=== PATIENT | female | born 1945 | race African-American/Black ===

== ENCOUNTER → 2016-06-26 | Outpatient (CLI) | payer BC, MEDICARE ==
[2016-01-25 11:00] VITALS: BP 138/72
[~2016-06-26] MED LIST: AMLO1CAP10 PO; AMLO5TAB2 PO; ASPI325T11 PO; ATOR10TA60 PO; CELE200C PO; FERR-26 PO; FERR325T58 PO; HYDR-2666 PO; METO25TA4 PO; OXYC1TAB7 PO; SENN1TAB21 PO; TRAM50TA PO
--- NOTE | 2016-06-26 11:24 | RAD ---
DATE: 06/26/2016. EXAM: DIGITAL SCREEN BILAT W/CAD HISTORY: Routine screening COMPARISON: 06/05/2015 This study was interpreted with the benefit of Computerized Aided Detection (CAD). FINDINGS: 2-D digital mammography was performed bilaterally. Both breasts again show moderate parenchymal heterogeneity and increased density, limiting the sensitivity of mammography. The parenchymal pattern is stable. No dominant mass or malignant appearing microcalcifications are seen. The axillae are unremarkable. IMPRESSION: No mammographic features suspicious for malignancy are identified. BI-RADS CATEGORY: 2 BENIGN FINDING(S) RECOMMENDED FOLLOW-UP: 12M 12 MONTH FOLLOW-UP PQRS compliance statement: Patient information was entered into a reminder system with a target due date for the next mammogram. Mammography is a sensitive method for finding small breast cancers, but it does not detect them all and is not a substitute for careful clinical examination. A negative mammogram does not negate a clinically suspicious finding and should not result in delay in biopsying a clinically suspicious abnormality. "Our facility is accredited by the [employer] Mammography Program."
== END | disposition home or self-care (01) ==
LOC: MAMMO 09:23
PROVIDERS: ATTEND Obstetrics & Gynecology
DX: Z12.31 Encounter for screening mammogram for malignant neoplasm of breast (principal)
CPT/HCPCS: G0202; 77067

== ENCOUNTER 2016-12-06 12:08 | Inpatient (IN) | payer BC, MEDICARE ==
[~2016-12-06] VITALS: Ht 157.5 cm; Wt 73.2 kg
[~2016-12-06 12:08] MED LIST changes: -HYDR-2666 PO; +HYDR-2758 PO
[2016-12-06] MEDS ORDERED: fentaNYL PF VIAL 100 MCG/2 ML VIAL IV ONE (12:45)
[2016-12-06] MEDS ORDERED: LIDO:MAALOX:DONNATAL 1:1:1 15 ML SINGLE DOSE SWSW ONE (12:45)
[2016-12-06] MEDS ORDERED: ONDANSETRON PF 4 MG/2 ML VIAL. IV ONE (12:45)
[2016-12-06] MEDS ORDERED: ASPIRIN ENTERIC COATED 325 MG TABLET.DR. PO ONE (12:45)
--- NOTE | 2016-12-06 13:01 | RAD ---
Indication chest pain. A single view of the chest was obtained and is compared to an examination 09/25/2015. The heart and pulmonary vessels appear normal. The lungs are clear. There are occasional calcified right hilar lymph nodes appearing similar. There has not been a significant change in the appearance of the chest. IMPRESSION: No acute or focal process. No significant change
--- NOTE | 2016-12-06 13:06 | EKG ---
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
--- NOTE | 2016-12-06 13:28 | PHYS DOC ---
Past Medical History Past Medical History: Hypertension, Other Additional Past Medical Histor: HIGH CHOLESTEROL Past Surgical History: Cholecystectomy, Hysterectomy Alcohol Use: None Drug Use: None Adult General Chief Complaint Chief Complaint: OTHER COMPLAINTS HPI HPI Patient is a 71 year old female presenting to the emergency department for evaluation of chest pain that she says started persistently for the past several days but she says that she has been having worsening pain over the past several weeks. She says that it is mostly in the center of her chest feels achy sometimes pressure she also says it hurts to swallow and feels that her foods or not passing very easily. She denies any short of breath diaphoresis nausea or vomiting. She has hypertension high cholesterol but denies any diabetes or family history of heart disease. She has had a negative stress test in the past. She is in no obvious distress with normal vital signs. Review of Systems Review of Systems Constitutional: Denies fever or chills [] Eyes: Denies change in visual acuity, redness, or eye pain [] HENT: Denies nasal congestion or sore throat [] Respiratory: Denies cough or shortness of breath [] Cardiovascular: + CP GI: Denies abdominal pain, nausea, vomiting, bloody stools or diarrhea [] : Denies dysuria or hematuria [] Musculoskeletal: Denies back pain or joint pain [] Integument: Denies rash or skin lesions [] Neurologic: Denies headache, focal weakness or sensory changes [] Current Medications Current Medications Current Medications Medications (Trade) Dose Ordered Sig/Taj Start Time Stop Time Status Last Admin Dose Admin Aspirin (Ecotrin) 325 mg 1X ONCE 12/06/16 12:45 12/06/16 12:46 DC 12/06/16 13:02 325 MG Fentanyl Citrate (Fentanyl 2ml Vial) 50 mcg 1X ONCE 12/06/16 12:45 12/06/16 12:46 DC 12/06/16 13:47 50 MCG Multi-Ingredient Mouthwash/Gargle (Gi Cocktail Single Dose) 15 ml 1X ONCE 12/06/16 12:45 12/06/16 12:46 DC 12/06/16 13:03 15 ML Ondansetron HCl (Zofran) 4 mg 1X ONCE 12/06/16 12:45 12/06/16 12:46 DC 12/06/16 13:43 4 MG Allergies Allergies Allergies Coded Allergies Type Severity Reaction Last Updated Verified No Known Drug Allergies 01/23/16 No Physical Exam Physical Exam Constitutional: Well developed, well nourished, no acute distress, non-toxic appearance. [] HENT: Normocephalic, atraumatic, bilateral external ears normal, oropharynx moist, no oral exudates, nose normal. [] Eyes: PERRLA, EOMI, conjunctiva normal, no discharge. [] Neck: Normal range of motion, no tenderness, supple, no stridor. [] Cardiovascular:Heart rate regular rhythm, no murmur [] Lungs & Thorax: Bilateral breath sounds clear to auscultation [] Abdomen: Bowel sounds normal, soft, no tenderness, no masses, no pulsatile masses. [] Skin: Warm, dry, no erythema, no rash. [] Back: No tenderness, no CVA tenderness. [] Extremities: No tenderness, no cyanosis, no clubbing, ROM intact, no edema. [] Neurologic: Alert and oriented X 3, normal motor function, normal sensory function, no focal deficits noted. [] Current Patient Data Vital Signs Vital Signs Date Time Temp Pulse Resp B/P (MAP) Pulse Ox O2 Delivery O2 Flow Rate FiO2 12/06/16 13:49 62 18 164/73 (103) 98 Room Air 12/06/16 12:23 98.5 98.5 Lab Values Laboratory Tests Test 12/06/16 13:35 White Blood Count 5.5 x10^3/uL (4.0-11.0) Red Blood Count 5.47 x10^6/uL (3.50-5.40) H Hemoglobin 14.9 g/dL (12.0-15.5) Hematocrit 45.4 % (36.0-47.0) Mean Corpuscular Volume 83 fL (79-100) Mean Corpuscular Hemoglobin 27 pg (25-35) Mean Corpuscular Hemoglobin Concent 33 g/dL (31-37) Red Cell Distribution Width 15.4 % (11.5-14.5) H Platelet Count 194 x10^3/uL (140-400) Neutrophils (%) (Auto) 56 % (31-73) Lymphocytes (%) (Auto) 33 % (24-48) Monocytes (%) (Auto) 6 % (0-9) Eosinophils (%) (Auto) 4 % (0-3) H Basophils (%) (Auto) 1 % (0-3) Neutrophils # (Auto) 3.1 x10^3uL (1.8-7.7) Lymphocytes # (Auto) 1.8 x10^3/uL (1.0-4.8) Monocytes # (Auto) 0.3 x10^3/uL (0.0-1.1) Eosinophils # (Auto) 0.2 x10^3/uL (0.0-0.7) Basophils # (Auto) 0.0 x10^3/uL (0.0-0.2) Prothrombin Time 12.8 SEC (11.7-14.0) Prothrombin Time INR 1.0 (0.8-1.1) PTT 25 SEC (24-38) Sodium Level 146 mmol/L (136-145) H Potassium Level 3.6 mmol/L (3.5-5.1) Chloride Level 105 mmol/L (98-107) Carbon Dioxide Level 27 mmol/L (21-32) Anion Gap 14 (6-14) Blood Urea Nitrogen 23 mg/dL (7-20) H Creatinine 1.6 mg/dL (0.6-1.0) H Estimated GFR (Cockcroft-Gault) 38.2 BUN/Creatinine Ratio 14 (6-20) Glucose Level 91 mg/dL (70-99) Calcium Level 9.5 mg/dL (8.5-10.1) Magnesium Level 2.0 mg/dL (1.8-2.4) Total Bilirubin 0.5 mg/dL (0.2-1.0) Aspartate Amino Transferase (AST) 28 U/L (15-37) Alanine Aminotransferase (ALT) 33 U/L (14-59) Alkaline Phosphatase 100 U/L (46-116) Creatine Kinase 178 U/L (26-192) Total Protein 9.5 g/dL (6.4-8.2) H Albumin 5.2 g/dL (3.4-5.0) H Albumin/Globulin Ratio 1.2 (1.0-1.7) Lipase 128 U/L (73-393) Laboratory Tests 12/06/16 13:35 Laboratory Tests 12/06/16 13:35 EKG EKG Sinus rhythm at 79 bpm with normal axis no obvious ST elevation or depression but there is inverted T waves in leads V2 V3 and V4. Radiology/Procedures Radiology/Procedures Indication chest pain. A single view of the chest was obtained and is compared to an examination 09/25/2015. The heart and pulmonary vessels appear normal. The lungs are clear. There are occasional calcified right hilar lymph nodes appearing similar. There has not been a significant change in the appearance of the chest. IMPRESSION: No acute or focal process. No significant change DICTATED and SIGNED BY: ALEKSANDRA DONNELLY MD DATE: 12/06/16 1259 Course & Med Decision Making Course & Med Decision Making Patient with chest pain in the setting of an abnormal EKG. Most likely this is esophageal spasm and likely narrowing but given she has an abnormal EKG with chest pain and she has multiple risk factors she will be admitted for further observation and treatment. Dragon Disclaimer Dragon Disclaimer This electronic medical record was generated, in whole or in part, using a voice recognition dictation system. Departure Departure Impression: Primary Impression: Chest pain Additional Impression: Renal insufficiency Disposition: ADMITTED INPATIENT Admitting Physician: Leonard Rose Condition: STABLE Referrals: JAMIL BRENNER Jr, MD (PCP) Problem Qualifiers Primary Impression: Chest pain Chest pain type: unspecified Qualified Codes: R07.9 - Chest pain, unspecified MANDA BISHOP DO Dec 06, 2016 13:28
[2016-12-06 13:46] LABS: BASO % 1 % (0-3); EOS % 4 % (0-3); HEMATOCRIT 45.4 % (36.0-47.0); HEMOGLOBIN 14.9 g/dL (12.0-15.5); LYMPH # 1.8 x10^3/uL (1.0-4.8); LYMPH % 33 % (24-48); MEAN CORPUSCULAR HEMOGLOBIN 27 pg (25-35); MEAN CORPUSCULAR HGB CONC 33 g/dL (31-37); MEAN CORPUSCULAR VOLUME 83 fL (79-100); MONO % 6 % (0-9); NEUT % 56 % (31-73); PLATELET COUNT 194 x10^3/uL (140-400); RED BLOOD COUNT 5.47 x10^6/uL (3.50-5.40); RED CELL DISTRIBUTION WIDTH 15.4 % (11.5-14.5); WHITE BLOOD COUNT 5.5 x10^3/uL (4.0-11.0)
[2016-12-06 13:55] LABS: PROTHROMBIN TIME PATIENT 12.8 SEC (11.7-14.0)
[2016-12-06 14:00] LABS: CALCIUM 9.5 mg/dL (8.5-10.1); CREATININE 1.6 mg/dL (0.6-1.0); GFR 38.2; POTASSIUM 3.6 mmol/L (3.5-5.1)
[2016-12-06 14:07] LABS: ALBUMIN 5.2 g/dL (3.4-5.0); ALBUMIN/GLOBULIN RATIO 1.2 (1.0-1.7); TOTAL BILIRUBIN 0.5 mg/dL (0.2-1.0); TOTAL PROTEIN 9.5 g/dL (6.4-8.2)
[2016-12-06] MEDS ORDERED: ONDANSETRON PF 4 MG/2 ML VIAL. IV PRN ×2 (14:45→16:45)
--- NOTE | 2016-12-06 14:45 | ACF ---
Admission Forms Criteria CARDIOLOGY GRG Clinical Indications for Admission to Inpatient Care ( Place 'X' for any and all applicable criteria): Hospital admission is needed for appropriate care of the patient because of ANY ONE of the following (1): [ ] I. Hemodynamic instability as indicated by ALL of the following (1)(2)(3) (4)(5) [ ]a) Vital signs or other findings not as expected for chronic patient condition or baseline [ ]b) Instability indicated by ANY ONE of the following: [ ]i) Hypotension [ ]ii) Symptomatic Tachycardia unresponsive to treatment ( e.g., analgesia, fluids, sedation as indicated) [ ]iii) Inadequate perfusion indicated by ANY ONE of the following: [ ] 1) Lactic acidosis (> 2 mmol/L) [ ] 2) New abnormal capillary refill (> 3 seconds) [ ] 3) Reduced urine output [ ] 4) New altered mental status [ ]iv) Orthostatic vital sign changes unresponsive to treatment (e.g., fluids) [ ]v) IV inotropic or vasopressor medication required to maintain adequate blood pressure or perfusion [ ] II. Severe heart failure as indicated by ANY ONE of the following(17)(18) [ ]a) Respiratory distress [ ]b) Hypotension [ ]c) Anasarca (refractory to outpatient therapy) [ ]d) Cardiac arrhythmias of immediate concern [ ]e) Myocardial ischemia [ ] III. Cardiac arrhythmias or findings of immediate concern indicated by ANY ONE of the following (19)(20): [ ] a) Heart rhythms that are inherently dangerous or unstable indicated by ANY ONE of the following (21)(22)(23): [ ] i) Resuscitated ventricular fibrillation or cardiac arrest [ ] ii) Ventricular escape rhythm [ ] iii) Sustained ventricular tachycardia (30 seconds or more of ventricular rhythm at greater than 100 beats per minute) [ ] iv) Nonsustained ventricular tachycardia and ANY ONE of the following: [ ] 1) Suspected cardiac ischemia as cause or consequence of ventricular tachycardia [ ] 2) In setting of acute myocarditis [ ] b) Unstable cardiac conduction defects indicated by ANY ONE of the following(23)(24)(25) [ ] i) Type II second-degree atrioventricular block [ ]ii) Third-degree atrioventricular block [ ]iii) New-onset left bundle branch block with suspected myocardial ischemia [ ]c) Any heart rhythm and ANY ONE of the following (21)(22)(26)(27) (28) [ ] i) Continuous long-term ECG monitoring needed (e.g., initiation of drug requiring monitoring for more than 24 hours) [ ] ii) Patient has automatic implanted cardioverter defibrillator that is repeatedly firing, malfunctioning, or in need of immediate adjustment of settings beyond the scope of ambulatory or observation care [ ]d) Heart rhythms of concern due to ANY ONE of the following: [ ] i) Hypotension [ ] ii) Respiratory distress [ ] iii) Association with other significant symptoms (e.g., bradycardia with syncope or ongoing dizziness, supraventricular tachycardia with chest pain (14)(15)(17) [ ] IV. Monitoring for cardiac contusion beyond the scope of observation care needed [A](30)(31)(32) [ ] V. Surgical or device complication (e.g., valve replacement complication , pacemaker dysfunction) (35)(41)(44)(45)(46) [ ] . Inpatient palliative care needed. [B](49) Also use Inpatient Palliative Care Criteria [ ] VII. Nonbacterial thrombotic (marantic) endocarditis (36)(43)(47)(48) [X ] VIII. Cardiology condition, symptom, or finding for which emergency and observation care has failed or are not considered appropriate. [ ] IX. Acute valvular disease requiring inpatient as indicated by ANY ONE of the following (41) [ ]a) Acute valvular regurgitation (42) [ ]b) Noninfectious valvulitis (43) [ ]c) Obstructive valve thrombosis [ ]d) Paravalvular leak [ ]e) Other significant valvular disorder remaining after emergency or observation level of care (as appropriate) [ ]X. Pericardial disease requiring inpatient treatment as indicated by ANY ONE of the following (33)(34)(35)(36)(37) [ ]a) Suspected tamponade (38)(39)(40) [ ]b) Hemopericardium [ ]c) Other significant pericardial disorder remaining after emergency or observation level of care (as appropriate) [ ] XI. Cardiac ischemia beyond scope of emergency and observation care. [ ] XII. Hypertension requiring inpatient treatment as indicated by ANY ONE of the following (6)(7)(8) [ ]a) SBP greater than 220 mm Hg or DBP greater than 120 mmHg despite treatment [ ]b) SBP greater than 140 mm Hg or DBP greater than 100 mm Hg with evidence of acute end organ damage as indicated by ANY ONE of the following [ ] i) Encephalopathy [ ] ii) Acute renal failure as indicated by new onset of ANY ONE of the following (9)(10)(11)(12)(13) [ ]1) 3-fold rise in serum creatinine from baseline [ ]2) Serum creatinine greater than 4 mg/dL ( 354 micromoles/L) with acute rise greater than 0.5 mg/dL (44.2 micromoles/L) [ ]3) Reduction of more than 75% in estimated glomerular filtration rate from baseline [ ]4) Estimated glomerular filtration rate less than 35 mL/min/1.73m2 (0.59 mL/sec/1.73m2) in child up to 18 years of age [ ]5) Cessation of urine output indicated by ALL of the following [ ]A. Adequate volume status [ ]B. Inadequate urine output as indicated by ANY ONE of the following [ ]a. Urine output less than 0.3 mL/kg/hr for 24 hours [ ]b. Anuria (urine output less than 0.1 mL/kg/hr) for 12 hours [ ] iii) Aortic dissection [ ] iv) Myocardial Ischemia [ ] v) Left ventricular heart failure [ ]vi) Retinal Hemorrhage [ ]vii) Other significant finding [ ]c) Hypertension in child requiring inpatient treatment as indicated by ALL of the following(14)(15)(16) [ ] i) Outpatient treatment not effective, not available, or not appropriate [ ]ii) SBP or DBP greater than 95th percentile for age [ ]iii) Evidence of acute end organ damage as indicated by ANY ONE of the following [ ]1) Altered mental status [ ]2) Acute renal failure as indicated by new onset of ANY ONE of the following(9)(10)(11)(12)(13) [ ]A. 3-fold rise in serum creatinine from baseline [ ]B. Serum creatinine greater than 4 mg/dL (354 micromoles/L) with acute rise greater than 0.5 mg/dL (44.2 micromoles/L) [ ]C. Reduction of more than 75% in estimated glomerular filtration rate from baseline [ ]D. Estimated glomerular filtration rate less than 35 mL/min/1.73m2 (0.59 mL/sec/1.73m2) in child up to 18 years of age [ ]E. Cessation of urine output indicated by ALL of the following [ ]a. Adequate volume status [ ]b. Inadequate urine output as indicated by ANY ONE of the following [ ]i) Urine output less than 0.3 mL/kg/hr for 24 hours [ ]ii) Anuria ( urine output less than 0.1 mL/kg/hr) for 12 hours [ ]3) Severe headache [ ]4) Visual disturbance [ ]5) Retinal hemorrhage [ ]6) Other significant finding [ ]XIII. Complications of transplanted heart indicated by ANY ONE of the following(61): [ ]a) Acute graft rejection requiring inpatient management (eg, intravenous immunosuppression)(62)(63) [ ]b) Acute graft heart failure indicated by ANY ONE of the following(64): [ ]i) Hemodynamic instability [ ]ii) Cardiac arrhythmias of immediate concern [ ]iii) Pulmonary edema that is very severe (eg, mechanical ventilation needed, imminent or likely, need for 100% oxygen to keep oxygen saturation above 90%) [ ]iv) Pulmonary edema that is persistent as indicated by ALL of the following: [ ]1) New need for oxygen therapy to keep oxygen saturation above 90% (or increased FiO2 need from baseline) [ ]2) Has not improved sufficiently with emergency department or observation care IV diuretics or other heart failure treatments[E] [ ]v) Altered mental status that is severe or persistent [ ]vi) Increased creatinine (new on laboratory test) with reduction of more than 50% in estimated glomerular filtration rate from baseline [ ]vii) Progressively (ongoing) rising creatinine (known from past laboratory test) with reduction of more than 25% in estimated glomerular filtration rate from baseline [ ]viii) Acute renal failure [ ]ix) Acute peripheral ischemia (eg, examination shows pulseless, cool, mottled, or cyanotic extremity) [ ]x) Pulmonary artery catheter monitoring needed [ ]xi) Other sign or symptom of heart failure requiring inpatient treatment (ie, too severe or not responsive to outpatient and observation care treatment) [ ]c) Infection requiring inpatient management (eg, Hemodynamic instability, need for intravenous antimicrobial treatment)(66)(67)(68)(69)(70) [ ]d) Cardiac allograft vasculopathy requiring inpatient management ( eg evidence of cardiac ischemia)(71) [ ]e) Other complication of transplanted heart (eg, stroke, severe pulmonary hypertension, severe valvular dysfunction) requiring inpatient management(72) The original [facility] content created by [facility] has been revised. The portions of the content which have been revised are identified through the use of italic text or in bold, and [facility] has neither reviewed nor approved the modified material. All other unmodified content is copyright [facility]. Please see references footnoted in the original [facility] edition 2016 Admission Criteria Met?: Yes LIU SALCEDO Dec 06, 2016 14:45
[2016-12-06 16:38] VITALS: BP 148/72
--- NOTE | 2016-12-06 16:41 | PDOC1 ---
History and Physical Date of Admission Date of Admission 12/06/2016 Identification/Chief Complaint Chief Complaint Pain, chest Problems: History of Present Illness History of Present Illness A 71-year-old -[place] female patient with prior history of hypertension hyperlipidemia presented to the ER with complaints of chest pain described it as coming and going, located in the center of the chest and resolves by itself, no aggravating or relieving factors however for last 2 days pain has been getting worse increasing frequency and sometimes radiating to the jaw and shoulder region. She denies any prior history of a heart headaches or significant coronary artery disease however her EKG showed some lateral lead changes. Past Medical History Cardiovascular: HTN, Hyperlipidemia Past Surgical History Past Surgical History: Cholecystectomy, Total knee replacement Family History Family History No significant coronary artery disease in the family Social History Smoke: No ALCOHOL: none Drugs: None Current Problem List Problem List Problems Medical Problems: (1) Chest pain Status: Acute (2) Renal insufficiency Status: Acute Current Medications Current Medications Current Medications Medications (Trade) Dose Ordered Sig/Taj Start Time Stop Time Status Last Admin Dose Admin Aspirin (Ecotrin) 325 mg 1X ONCE 12/06/16 12:45 12/06/16 12:46 DC 12/06/16 13:02 325 MG Fentanyl Citrate (Fentanyl 2ml Vial) 50 mcg 1X ONCE 12/06/16 12:45 12/06/16 12:46 DC 12/06/16 13:47 50 MCG Multi-Ingredient Mouthwash/Gargle (Gi Cocktail Single Dose) 15 ml 1X ONCE 12/06/16 12:45 12/06/16 12:46 DC 12/06/16 13:03 15 ML Ondansetron HCl (Zofran) 4 mg PRN Q8HRS PRN 12/06/16 14:45 12/07/16 14:44 Allergies Allergies Allergies Coded Allergies Type Severity Reaction Last Updated Verified No Known Drug Allergies 01/23/16 No ROS Review of System CONSTITUTIONAL: No fever or chills EYES: No recent changes SKIN: No rash or itching CARDIOVASCULAR: chest pain, no syncope, palpitations, or edema RESPIRATORY: No SOB or cough GASTROINTESTINAL: No nausea, vomiting or abdominal pain NEUROLOGICAL: No headaches or weakness ENDOCRINE: No cold or heat intolerance GENITOURINARY: No urgency or frequency of urination MUSCULOSKELETAL: No back pain or joint pain LYMPHATICS: No enlarged lymph nodes PSYCHIATRIC: No anxiety or depression Physical Exam Physical Exam GEN.: No apparent distress. Alert and oriented. HEENT: Head is normocephalic, atraumatic NECK: Supple. no jvd LUNGS: Clear to auscultation. Normal flow HEART: RRR, S1, S2 present. Peripheral pulses intact ABDOMEN: Soft, nontender. Positive bowel sounds. EXTREMITIES: Without any cyanosis. NEUROLOGIC: Normal speech, normal tone PSYCHIATRIC: Normal affect, normal mood. SKIN: No ulcerations Vitals Vitals Vital Signs Date Time Temp Pulse Resp B/P (MAP) Pulse Ox O2 Delivery O2 Flow Rate FiO2 12/06/16 14:42 76 14 134/61 (85) 98 Room Air 12/06/16 12:23 98.5 98.5 Labs Labs Laboratory Tests Test 12/06/16 13:35 White Blood Count 5.5 x10^3/uL (4.0-11.0) Red Blood Count 5.47 x10^6/uL (3.50-5.40) Hemoglobin 14.9 g/dL (12.0-15.5) Hematocrit 45.4 % (36.0-47.0) Mean Corpuscular Volume 83 fL (79-100) Mean Corpuscular Hemoglobin 27 pg (25-35) Mean Corpuscular Hemoglobin Concent 33 g/dL (31-37) Red Cell Distribution Width 15.4 % (11.5-14.5) Platelet Count 194 x10^3/uL (140-400) Neutrophils (%) (Auto) 56 % (31-73) Lymphocytes (%) (Auto) 33 % (24-48) Monocytes (%) (Auto) 6 % (0-9) Eosinophils (%) (Auto) 4 % (0-3) Basophils (%) (Auto) 1 % (0-3) Neutrophils # (Auto) 3.1 x10^3uL (1.8-7.7) Lymphocytes # (Auto) 1.8 x10^3/uL (1.0-4.8) Monocytes # (Auto) 0.3 x10^3/uL (0.0-1.1) Eosinophils # (Auto) 0.2 x10^3/uL (0.0-0.7) Basophils # (Auto) 0.0 x10^3/uL (0.0-0.2) Prothrombin Time 12.8 SEC (11.7-14.0) Prothromb Time International Ratio 1.0 (0.8-1.1) Activated Partial Thromboplast Time 25 SEC (24-38) Sodium Level 146 mmol/L (136-145) Potassium Level 3.6 mmol/L (3.5-5.1) Chloride Level 105 mmol/L (98-107) Carbon Dioxide Level 27 mmol/L (21-32) Anion Gap 14 (6-14) Blood Urea Nitrogen 23 mg/dL (7-20) Creatinine 1.6 mg/dL (0.6-1.0) Estimated GFR (Cockcroft-Gault) 38.2 BUN/Creatinine Ratio 14 (6-20) Glucose Level 91 mg/dL (70-99) Calcium Level 9.5 mg/dL (8.5-10.1) Magnesium Level 2.0 mg/dL (1.8-2.4) Total Bilirubin 0.5 mg/dL (0.2-1.0) Aspartate Amino Transf (AST/SGOT) 28 U/L (15-37) Alanine Aminotransferase (ALT/SGPT) 33 U/L (14-59) Alkaline Phosphatase 100 U/L (46-116) Creatine Kinase 178 U/L (26-192) Troponin I Quantitative < 0.017 ng/mL (0.000-0.055) BB-Dnp-C-Type Natriuretic Peptide 303 pg/mL (0-124) Total Protein 9.5 g/dL (6.4-8.2) Albumin 5.2 g/dL (3.4-5.0) Albumin/Globulin Ratio 1.2 (1.0-1.7) Lipase 128 U/L (73-393) Laboratory Tests Test 12/06/16 13:35 White Blood Count 5.5 x10^3/uL (4.0-11.0) Red Blood Count 5.47 x10^6/uL (3.50-5.40) Hemoglobin 14.9 g/dL (12.0-15.5) Hematocrit 45.4 % (36.0-47.0) Mean Corpuscular Volume 83 fL (79-100) Mean Corpuscular Hemoglobin 27 pg (25-35) Mean Corpuscular Hemoglobin Concent 33 g/dL (31-37) Red Cell Distribution Width 15.4 % (11.5-14.5) Platelet Count 194 x10^3/uL (140-400) Neutrophils (%) (Auto) 56 % (31-73) Lymphocytes (%) (Auto) 33 % (24-48) Monocytes (%) (Auto) 6 % (0-9) Eosinophils (%) (Auto) 4 % (0-3) Basophils (%) (Auto) 1 % (0-3) Neutrophils # (Auto) 3.1 x10^3uL (1.8-7.7) Lymphocytes # (Auto) 1.8 x10^3/uL (1.0-4.8) Monocytes # (Auto) 0.3 x10^3/uL (0.0-1.1) Eosinophils # (Auto) 0.2 x10^3/uL (0.0-0.7) Basophils # (Auto) 0.0 x10^3/uL (0.0-0.2) Prothrombin Time 12.8 SEC (11.7-14.0) Prothromb Time International Ratio 1.0 (0.8-1.1) Activated Partial Thromboplast Time 25 SEC (24-38) Sodium Level 146 mmol/L (136-145) Potassium Level 3.6 mmol/L (3.5-5.1) Chloride Level 105 mmol/L (98-107) Carbon Dioxide Level 27 mmol/L (21-32) Anion Gap 14 (6-14) Blood Urea Nitrogen 23 mg/dL (7-20) Creatinine 1.6 mg/dL (0.6-1.0) Estimated GFR (Cockcroft-Gault) 38.2 BUN/Creatinine Ratio 14 (6-20) Glucose Level 91 mg/dL (70-99) Calcium Level 9.5 mg/dL (8.5-10.1) Magnesium Level 2.0 mg/dL (1.8-2.4) Total Bilirubin 0.5 mg/dL (0.2-1.0) Aspartate Amino Transf (AST/SGOT) 28 U/L (15-37) Alanine Aminotransferase (ALT/SGPT) 33 U/L (14-59) Alkaline Phosphatase 100 U/L (46-116) Creatine Kinase 178 U/L (26-192) Troponin I Quantitative < 0.017 ng/mL (0.000-0.055) CP-Hma-S-Type Natriuretic Peptide 303 pg/mL (0-124) Total Protein 9.5 g/dL (6.4-8.2) Albumin 5.2 g/dL (3.4-5.0) Albumin/Globulin Ratio 1.2 (1.0-1.7) Lipase 128 U/L (73-393) VTE Prophylaxis Ordered VTE Prophylaxis Devices: Yes VTE Pharmacological Prophylaxi: Yes Assessment/Plan Assessment/Plan Chest pain atypical in nature: Possible differentials ACS versus series of physical spasm versus GERD, she's been admitted the hospital and will get 2 sets of 4 troponins, I'll consult cardiology, EKG personally reviewed might have led to lead flattening's. Ordered an echocardiogram, may need stress test, we will keep her nothing by mouth from midnight. Hypertension: Continue home medications, currently stable. Hyperlipidemia: Chronic stable, continue current home medications. Labs EKG and images reviewed. Case discussed with the ER physician. JOSH TELLO MD Dec 06, 2016 16:41
[2016-12-06] MEDS ORDERED: HYDROcodone/APAP 5/325MG 1 TAB TABLET PO PRN (16:45)
[2016-12-06] MEDS ORDERED: ACETAMINOPHEN 325 MG TABLET. PO PRN (16:45)
[2016-12-06] MEDS ORDERED: ALBUTEROL SULFATE 2.5 MG/3 ML NEBU. NEB PRN (16:45)
[2016-12-06] MEDS ORDERED: hydrALAZINE 20 MG/ML VIAL. IVP PRN (16:45)
[2016-12-06] MEDS ORDERED: NITROGLYCERIN SUBLINGUAL 0.4 MG BOTTLE OF 25. SL PRN (16:45)
[2016-12-06] MEDS: amLODIPine BESYLATE 5 MG TABLET PO SCH (17:21)
[2016-12-06 19:00] VITALS: BP 106/55
[2016-12-06] MEDS: ATORVASTATIN CALCIUM 10 MG TABLET. PO SCH (20:32)
[2016-12-06] MEDS: METOPROLOL TART IMMED RELEASE 25 MG TABLET. PO SCH (20:33)
[2016-12-06 22:47] VITALS: BP 125/67
[2016-12-07 03:00] VITALS: BP 119/66
[2016-12-07 07:00] VITALS: BP 109/59
[2016-12-07 07:57] LABS: CALCIUM 8.9 mg/dL (8.5-10.1); CREATININE 1.5 mg/dL (0.6-1.0); GFR 41.2; POTASSIUM 3.7 mmol/L (3.5-5.1)
[2016-12-07 08:11] LABS: BASO % 1 % (0-3); EOS % 6 % (0-3); HEMATOCRIT 37.3 % (36.0-47.0); HEMOGLOBIN 12.1 g/dL (12.0-15.5); LYMPH # 1.9 x10^3/uL (1.0-4.8); LYMPH % 36 % (24-48); MEAN CORPUSCULAR HEMOGLOBIN 27 pg (25-35); MEAN CORPUSCULAR HGB CONC 33 g/dL (31-37); MEAN CORPUSCULAR VOLUME 83 fL (79-100); MONO % 8 % (0-9); NEUT % 49 % (31-73); PLATELET COUNT 156 x10^3/uL (140-400); RED BLOOD COUNT 4.49 x10^6/uL (3.50-5.40); RED CELL DISTRIBUTION WIDTH 15.4 % (11.5-14.5); WHITE BLOOD COUNT 5.2 x10^3/uL (4.0-11.0)
[2016-12-07] MEDS: amLODIPine BESYLATE 5 MG TABLET PO SCH (09:00)
[2016-12-07] MEDS: METOPROLOL TART IMMED RELEASE 25 MG TABLET. PO SCH ×2 (09:00→21:46)
--- NOTE | 2016-12-07 09:21 | PDOC2 ---
CARDIOLOGY CONSULT NOTE CHEIF COMPLAINT: chest pain Problems: HPI: Pleasant 71 y.o coming for recurrent chest pain She has had sharp stabbing pains for several years. Over the last few weeks has been taking PPI and Sucralfate without improvement Sharp pain sometimes goes to her neck, jaw and chest. Lasts various amounts of time, rates 5-10 on pain scale In ER, had non-specific EKG so admitted for further eval She denies any exertional angina or dyspnea. Limited in mobility from exercising due to knee pain. Reports compliance with meds - had stress 5 yrs ago which was normal PMHX: HTn DLP SOCHX: No alcohol, tob or illicits FAMHX: Non-contributory CURRENT MEDS: Current Medications Medications (Trade) Dose Ordered Sig/Taj Start Time Stop Time Status Last Admin Dose Admin Acetaminophen (Tylenol) 325 mg PRN Q6HRS PRN 12/06/16 16:45 Acetaminophen/ Hydrocodone Bitart (Lortab 5/325) 1 tab PRN Q6HRS PRN 12/06/16 16:45 12/06/16 21:47 1 TAB Albuterol Sulfate (Ventolin Neb Soln) 2.5 mg PRN Q4HRS PRN 12/06/16 16:45 Amlodipine Besylate (Norvasc) 5 mg DAILY 12/06/16 17:00 12/06/16 17:21 5 MG Aspirin (Ecotrin) 325 mg 1X ONCE 12/06/16 12:45 12/06/16 12:46 DC 12/06/16 13:02 325 MG Atorvastatin Calcium (Lipitor) 10 mg QHS 12/06/16 21:00 12/06/16 20:32 10 MG Fentanyl Citrate (Fentanyl 2ml Vial) 50 mcg 1X ONCE 12/06/16 12:45 12/06/16 12:46 DC 12/06/16 13:47 50 MCG Hydralazine HCl (Apresoline) 10 mg PRN Q4HRS PRN 12/06/16 16:45 Metoprolol Tartrate (Lopressor) 25 mg BID 12/06/16 21:00 12/06/16 20:33 25 MG Multi-Ingredient Mouthwash/Gargle (Gi Cocktail Single Dose) 15 ml 1X ONCE 12/06/16 12:45 12/06/16 12:46 DC 12/06/16 13:03 15 ML Nitroglycerin (Nitrostat) 0.4 mg PRN Q5MIN PRN 12/06/16 16:45 Ondansetron HCl (Zofran) 4 mg PRN Q8HRS PRN 12/06/16 16:45 ALLERGIES: Allergies Coded Allergies Type Severity Reaction Last Updated Verified No Known Drug Allergies 01/23/16 No ROS: 14 point system was reviewed and is negative other then described in HPI and past medical and surgical history. PHYSICAL EXAM: Vital Signs: Vital Signs Date Time Temp Pulse Resp B/P (MAP) Pulse Ox O2 Delivery O2 Flow Rate FiO2 12/07/16 07:00 97.8 59 17 109/59 (76) 97 Room Air 97.8 I & O Intake and Output 12/07/16 07:00 Intake Total 820 ml Balance 820 ml Intake Oral 820 ml # Voids 3 Physical Exam: GEN.: No apparent distress. Alert and oriented. HEENT: Head is normocephalic, atraumatic NECK: Supple. LUNGS: Clear to auscultation. HEART: RRR, S1, S2 present. Peripheral pulses intact ABDOMEN: Soft, nontender. Positive bowel sounds. EXTREMITIES: Without any cyanosis. NEUROLOGIC: Normal speech, normal tone PSYCHIATRIC: Normal affect, normal mood. SKIN: No ulcerations DIAGNOSTIC TESTING: EKG - NSR with non-specific ST/T changes Lab labs reviewed ASSESSMENT: 1. Atypical chest pain - Less likely to be cardiac but she has had persistent symptoms. GERD is a possibility but also less likely given that she has had no improvement with PPI/sucralfate. 2. HTN 3. DLP. PLAN: 1. Check MPI to rule out occult CAD given her age and risk factors. 2. If negative, then could consider CT chest and/or GI evaluation. Thanks for consult. SARA CELESTE MD Dec 07, 2016 09:21
[2016-12-07 10:32] VITALS: BP 105/64
[2016-12-07] MEDS ORDERED: REGADENOSON 0.4 MG/5 ML DISP.SYRIN. IV ONE (10:45)
--- NOTE | 2016-12-07 11:51 | PDOC ---
PROGRESS NOTES Chief Complaint Chief Complaint cc: chest pain A/P Chest pain atypical in nature: possible anxiety, stress test pending. DC plans based on test results. Hypertension: Continue home medications, currently stable. Hyperlipidemia: Chronic stable, continue current home medications. Labs EKG and images reviewed. Vitals Vitals Vital Signs Date Time Temp Pulse Resp B/P (MAP) Pulse Ox O2 Delivery O2 Flow Rate FiO2 12/07/16 10:32 97.0 62 17 105/64 (78) 98 Room Air 97.0 Physical Exam General: Alert, Oriented X3 Heart: Normal S1 Abdomen: Normal bowel sounds Extremities: No clubbing Labs LABS Laboratory Tests Test 12/06/16 13:35 12/06/16 20:55 12/07/16 07:15 White Blood Count 5.5 x10^3/uL (4.0-11.0) 5.2 x10^3/uL (4.0-11.0) Red Blood Count 5.47 x10^6/uL (3.50-5.40) 4.49 x10^6/uL (3.50-5.40) Hemoglobin 14.9 g/dL (12.0-15.5) 12.1 g/dL (12.0-15.5) Hematocrit 45.4 % (36.0-47.0) 37.3 % (36.0-47.0) Mean Corpuscular Volume 83 fL (79-100) 83 fL (79-100) Mean Corpuscular Hemoglobin 27 pg (25-35) 27 pg (25-35) Mean Corpuscular Hemoglobin Concent 33 g/dL (31-37) 33 g/dL (31-37) Red Cell Distribution Width 15.4 % (11.5-14.5) 15.4 % (11.5-14.5) Platelet Count 194 x10^3/uL (140-400) 156 x10^3/uL (140-400) Neutrophils (%) (Auto) 56 % (31-73) 49 % (31-73) Lymphocytes (%) (Auto) 33 % (24-48) 36 % (24-48) Monocytes (%) (Auto) 6 % (0-9) 8 % (0-9) Eosinophils (%) (Auto) 4 % (0-3) 6 % (0-3) Basophils (%) (Auto) 1 % (0-3) 1 % (0-3) Neutrophils # (Auto) 3.1 x10^3uL (1.8-7.7) 2.5 x10^3uL (1.8-7.7) Lymphocytes # (Auto) 1.8 x10^3/uL (1.0-4.8) 1.9 x10^3/uL (1.0-4.8) Monocytes # (Auto) 0.3 x10^3/uL (0.0-1.1) 0.4 x10^3/uL (0.0-1.1) Eosinophils # (Auto) 0.2 x10^3/uL (0.0-0.7) 0.3 x10^3/uL (0.0-0.7) Basophils # (Auto) 0.0 x10^3/uL (0.0-0.2) 0.0 x10^3/uL (0.0-0.2) Prothrombin Time 12.8 SEC (11.7-14.0) Prothromb Time International Ratio 1.0 (0.8-1.1) Activated Partial Thromboplast Time 25 SEC (24-38) Sodium Level 146 mmol/L (136-145) 143 mmol/L (136-145) Potassium Level 3.6 mmol/L (3.5-5.1) 3.7 mmol/L (3.5-5.1) Chloride Level 105 mmol/L (98-107) 107 mmol/L (98-107) Carbon Dioxide Level 27 mmol/L (21-32) 27 mmol/L (21-32) Anion Gap 14 (6-14) 9 (6-14) Blood Urea Nitrogen 23 mg/dL (7-20) 23 mg/dL (7-20) Creatinine 1.6 mg/dL (0.6-1.0) 1.5 mg/dL (0.6-1.0) Estimated GFR (Cockcroft-Gault) 38.2 41.2 BUN/Creatinine Ratio 14 (6-20) Glucose Level 91 mg/dL (70-99) 96 mg/dL (70-99) Calcium Level 9.5 mg/dL (8.5-10.1) 8.9 mg/dL (8.5-10.1) Magnesium Level 2.0 mg/dL (1.8-2.4) Total Bilirubin 0.5 mg/dL (0.2-1.0) Aspartate Amino Transf (AST/SGOT) 28 U/L (15-37) Alanine Aminotransferase (ALT/SGPT) 33 U/L (14-59) Alkaline Phosphatase 100 U/L (46-116) Creatine Kinase 178 U/L (26-192) Troponin I Quantitative < 0.017 ng/mL (0.000-0.055) < 0.017 ng/mL (0.000-0.055) < 0.017 ng/mL (0.000-0.055) JU-Bls-Z-Type Natriuretic Peptide 303 pg/mL (0-124) Total Protein 9.5 g/dL (6.4-8.2) Albumin 5.2 g/dL (3.4-5.0) Albumin/Globulin Ratio 1.2 (1.0-1.7) Lipase 128 U/L (73-393) Assessment and Plan Assessmemt and Plan Problems Medical Problems: (1) Chest pain Status: Acute (2) Renal insufficiency Status: Acute Problems: Comment Review of Relevant I have reviewed the following items regulo (where applicable) has been applied. Labs Laboratory Tests Test 12/06/16 13:35 12/06/16 20:55 12/07/16 07:15 White Blood Count 5.5 x10^3/uL (4.0-11.0) 5.2 x10^3/uL (4.0-11.0) Red Blood Count 5.47 x10^6/uL (3.50-5.40) 4.49 x10^6/uL (3.50-5.40) Hemoglobin 14.9 g/dL (12.0-15.5) 12.1 g/dL (12.0-15.5) Hematocrit 45.4 % (36.0-47.0) 37.3 % (36.0-47.0) Mean Corpuscular Volume 83 fL (79-100) 83 fL (79-100) Mean Corpuscular Hemoglobin 27 pg (25-35) 27 pg (25-35) Mean Corpuscular Hemoglobin Concent 33 g/dL (31-37) 33 g/dL (31-37) Red Cell Distribution Width 15.4 % (11.5-14.5) 15.4 % (11.5-14.5) Platelet Count 194 x10^3/uL (140-400) 156 x10^3/uL (140-400) Neutrophils (%) (Auto) 56 % (31-73) 49 % (31-73) Lymphocytes (%) (Auto) 33 % (24-48) 36 % (24-48) Monocytes (%) (Auto) 6 % (0-9) 8 % (0-9) Eosinophils (%) (Auto) 4 % (0-3) 6 % (0-3) Basophils (%) (Auto) 1 % (0-3) 1 % (0-3) Neutrophils # (Auto) 3.1 x10^3uL (1.8-7.7) 2.5 x10^3uL (1.8-7.7) Lymphocytes # (Auto) 1.8 x10^3/uL (1.0-4.8) 1.9 x10^3/uL (1.0-4.8) Monocytes # (Auto) 0.3 x10^3/uL (0.0-1.1) 0.4 x10^3/uL (0.0-1.1) Eosinophils # (Auto) 0.2 x10^3/uL (0.0-0.7) 0.3 x10^3/uL (0.0-0.7) Basophils # (Auto) 0.0 x10^3/uL (0.0-0.2) 0.0 x10^3/uL (0.0-0.2) Prothrombin Time 12.8 SEC (11.7-14.0) Prothromb Time International Ratio 1.0 (0.8-1.1) Activated Partial Thromboplast Time 25 SEC (24-38) Sodium Level 146 mmol/L (136-145) 143 mmol/L (136-145) Potassium Level 3.6 mmol/L (3.5-5.1) 3.7 mmol/L (3.5-5.1) Chloride Level 105 mmol/L (98-107) 107 mmol/L (98-107) Carbon Dioxide Level 27 mmol/L (21-32) 27 mmol/L (21-32) Anion Gap 14 (6-14) 9 (6-14) Blood Urea Nitrogen 23 mg/dL (7-20) 23 mg/dL (7-20) Creatinine 1.6 mg/dL (0.6-1.0) 1.5 mg/dL (0.6-1.0) Estimated GFR (Cockcroft-Gault) 38.2 41.2 BUN/Creatinine Ratio 14 (6-20) Glucose Level 91 mg/dL (70-99) 96 mg/dL (70-99) Calcium Level 9.5 mg/dL (8.5-10.1) 8.9 mg/dL (8.5-10.1) Magnesium Level 2.0 mg/dL (1.8-2.4) Total Bilirubin 0.5 mg/dL (0.2-1.0) Aspartate Amino Transf (AST/SGOT) 28 U/L (15-37) Alanine Aminotransferase (ALT/SGPT) 33 U/L (14-59) Alkaline Phosphatase 100 U/L (46-116) Creatine Kinase 178 U/L (26-192) Troponin I Quantitative < 0.017 ng/mL (0.000-0.055) < 0.017 ng/mL (0.000-0.055) < 0.017 ng/mL (0.000-0.055) TB-Osx-B-Type Natriuretic Peptide 303 pg/mL (0-124) Total Protein 9.5 g/dL (6.4-8.2) Albumin 5.2 g/dL (3.4-5.0) Albumin/Globulin Ratio 1.2 (1.0-1.7) Lipase 128 U/L (73-393) Laboratory Tests Test 12/06/16 13:35 12/06/16 20:55 12/07/16 07:15 White Blood Count 5.5 x10^3/uL (4.0-11.0) 5.2 x10^3/uL (4.0-11.0) Red Blood Count 5.47 x10^6/uL (3.50-5.40) 4.49 x10^6/uL (3.50-5.40) Hemoglobin 14.9 g/dL (12.0-15.5) 12.1 g/dL (12.0-15.5) Hematocrit 45.4 % (36.0-47.0) 37.3 % (36.0-47.0) Mean Corpuscular Volume 83 fL (79-100) 83 fL (79-100) Mean Corpuscular Hemoglobin 27 pg (25-35) 27 pg (25-35) Mean Corpuscular Hemoglobin Concent 33 g/dL (31-37) 33 g/dL (31-37) Red Cell Distribution Width 15.4 % (11.5-14.5) 15.4 % (11.5-14.5) Platelet Count 194 x10^3/uL (140-400) 156 x10^3/uL (140-400) Neutrophils (%) (Auto) 56 % (31-73) 49 % (31-73) Lymphocytes (%) (Auto) 33 % (24-48) 36 % (24-48) Monocytes (%) (Auto) 6 % (0-9) 8 % (0-9) Eosinophils (%) (Auto) 4 % (0-3) 6 % (0-3) Basophils (%) (Auto) 1 % (0-3) 1 % (0-3) Neutrophils # (Auto) 3.1 x10^3uL (1.8-7.7) 2.5 x10^3uL (1.8-7.7) Lymphocytes # (Auto) 1.8 x10^3/uL (1.0-4.8) 1.9 x10^3/uL (1.0-4.8) Monocytes # (Auto) 0.3 x10^3/uL (0.0-1.1) 0.4 x10^3/uL (0.0-1.1) Eosinophils # (Auto) 0.2 x10^3/uL (0.0-0.7) 0.3 x10^3/uL (0.0-0.7) Basophils # (Auto) 0.0 x10^3/uL (0.0-0.2) 0.0 x10^3/uL (0.0-0.2) Prothrombin Time 12.8 SEC (11.7-14.0) Prothromb Time International Ratio 1.0 (0.8-1.1) Activated Partial Thromboplast Time 25 SEC (24-38) Sodium Level 146 mmol/L (136-145) 143 mmol/L (136-145) Potassium Level 3.6 mmol/L (3.5-5.1) 3.7 mmol/L (3.5-5.1) Chloride Level 105 mmol/L (98-107) 107 mmol/L (98-107) Carbon Dioxide Level 27 mmol/L (21-32) 27 mmol/L (21-32) Anion Gap 14 (6-14) 9 (6-14) Blood Urea Nitrogen 23 mg/dL (7-20) 23 mg/dL (7-20) Creatinine 1.6 mg/dL (0.6-1.0) 1.5 mg/dL (0.6-1.0) Estimated GFR (Cockcroft-Gault) 38.2 41.2 BUN/Creatinine Ratio 14 (6-20) Glucose Level 91 mg/dL (70-99) 96 mg/dL (70-99) Calcium Level 9.5 mg/dL (8.5-10.1) 8.9 mg/dL (8.5-10.1) Magnesium Level 2.0 mg/dL (1.8-2.4) Total Bilirubin 0.5 mg/dL (0.2-1.0) Aspartate Amino Transf (AST/SGOT) 28 U/L (15-37) Alanine Aminotransferase (ALT/SGPT) 33 U/L (14-59) Alkaline Phosphatase 100 U/L (46-116) Creatine Kinase 178 U/L (26-192) Troponin I Quantitative < 0.017 ng/mL (0.000-0.055) < 0.017 ng/mL (0.000-0.055) < 0.017 ng/mL (0.000-0.055) GN-Brj-U-Type Natriuretic Peptide 303 pg/mL (0-124) Total Protein 9.5 g/dL (6.4-8.2) Albumin 5.2 g/dL (3.4-5.0) Albumin/Globulin Ratio 1.2 (1.0-1.7) Lipase 128 U/L (73-393) Medications Current Medications Aspirin (Ecotrin) 325 mg 1X ONCE PO Last administered on 7/7/17at 13:02; Start 12/06/16 at 12:45; Stop 12/06/16 at 12:46; Status DC Multi-Ingredient Mouthwash/Gargle (Gi Cocktail Single Dose) 15 ml 1X ONCE SWSW Last administered on 12/06/16 13:03; Start 12/06/16 at 12:45; Stop 12/06/16 at 12:46; Status DC Ondansetron HCl (Zofran) 4 mg 1X ONCE IV Last administered on 12/06/16 13:43; Start 12/06/16 at 12:45; Stop 12/06/16 at 12:46; Status DC Fentanyl Citrate (Fentanyl 2ml Vial) 50 mcg 1X ONCE IV Last administered on 13:47; Start 12/06/16 at 12:45; Stop 12/06/16 at 12:46; Status DC Ondansetron HCl (Zofran) 4 mg PRN Q8HRS PRN IV NAUSEA/VOMITING; Start 12/06/16 at 14:45; Stop 12/06/16 at 16:47; Status DC Acetaminophen (Tylenol) 325 mg PRN Q6HRS PRN PO MILD PAIN / TEMP; Start at 16:45 Acetaminophen/ Hydrocodone Bitart (Lortab 5/325) 1 tab PRN Q6HRS PRN PO MODERATE TO SEVERE PAIN Last administered on 12/06/16 21:47; Start 12/06/16 at 16 :45 Hydralazine HCl (Apresoline) 10 mg PRN Q4HRS PRN IVP ELEVATED BP, SEE COMMENTS ; Start 12/06/16 at 16:45 Ondansetron HCl (Zofran) 4 mg PRN Q8HRS PRN IV NAUSEA/VOMITING; Start 12/06/16 at 16:45 Albuterol Sulfate (Ventolin Neb Soln) 2.5 mg PRN Q4HRS PRN NEB SHORTNESS OF BREATH; Start 12/06/16 at 16:45 Nitroglycerin (Nitrostat) 0.4 mg PRN Q5MIN PRN SL CHEST PAIN; Start 12/06/16 at 16:45 Amlodipine Besylate (Norvasc) 5 mg DAILY PO Last administered on 12/06/16 17:21 ; Start 12/06/16 at 17:00 Atorvastatin Calcium (Lipitor) 10 mg QHS PO Last administered on 12/06/16 20:32 ; Start 12/06/16 at 21:00 Metoprolol Tartrate (Lopressor) 25 mg BID PO Last administered on 12/06/16 20: 33; Start 12/06/16 at 21:00 Regadenoson (Lexiscan) 0.4 mg 1X ONCE IV Last administered on 12/07/16 10:47; Start 12/07/16 at 10:45; Stop 12/07/16 at 10:46; Status DC Active Scripts Active Reported Amlodipine Besylate 5 Mg Tablet 5 Mg PO DAILY last dose this am next dose tomorrow am Metoprolol Tartrate 25 Mg Tablet 25 Mg PO BID last dose this am next dose tonight Atorvastatin Calcium 10 Mg Tablet 10 Mg PO DAILY last dose last night next dose tonight Vitals/I & O Vital Sign - Last 24 Hours 12/06/16 12/06/16 12/06/16 12/06/16 12:23 12:42 12:57 13:06 Temp 98.5 98.5 Pulse 77 72 74 71 Resp 18 17 18 18 B/P (MAP) 165/81 (109) 160/75 (103) 155/66 (95) 147/71 (96) Pulse Ox 100 100 100 100 O2 Delivery Room Air Room Air Room Air Room Air 12/06/16 12/06/16 12/06/16 12/06/16 13:12 13:32 13:42 13:47 Pulse 68 80 68 Resp 16 21 16 20 B/P (MAP) 162/76 (104) 185/74 (111) 155/62 (93) Pulse Ox 100 100 99 99 O2 Delivery Room Air Room Air Room Air Room Air 12/06/16 12/06/16 12/06/16 12/06/16 13:49 13:57 14:12 14:17 Pulse 62 82 76 Resp 18 22 13 18 B/P (MAP) 164/73 (103) 157/72 (100) 163/74 (103) Pulse Ox 98 98 96 O2 Delivery Room Air Room Air Room Air Room Air 12/06/16 12/06/16 12/06/16 12/06/16 14:27 14:42 16:38 17:21 Temp 99.0 99.0 Pulse 70 76 71 71 Resp 13 14 18 B/P (MAP) 149/66 (93) 134/61 (85) 148/72 (97) 148/72 Pulse Ox 96 98 99 O2 Delivery Room Air Room Air Room Air 12/06/16 12/06/16 12/06/16 12/06/16 17:36 19:00 19:24 20:20 Temp 97.7 97.7 Pulse 63 Resp 18 B/P (MAP) 106/55 (72) Pulse Ox 97 95 O2 Delivery Room Air Room Air Room Air Room Air 12/06/16 12/06/16 12/06/16 12/06/16 20:33 21:47 22:47 22:52 Temp 98.0 98.0 Pulse 63 60 Resp 18 18 18 B/P (MAP) 106/55 125/67 (86) Pulse Ox 95 91 91 O2 Delivery Room Air Room Air Room Air 12/07/16 12/07/16 12/07/16 12/07/16 03:00 07:00 08:00 10:32 Temp 98.2 97.8 97.0 98.2 97.8 97.0 Pulse 60 59 62 Resp 18 17 17 B/P (MAP) 119/66 (83) 109/59 (76) 105/64 (78) Pulse Ox 93 97 98 O2 Delivery Room Air Room Air Room Air Room Air Intake and Output 12/06/16 12/06/16 12/07/16 15:00 23:00 07:00 Intake Total 820 ml 0 ml Balance 820 ml 0 ml JOSH TELLO MD Dec 07, 2016 11:51
[2016-12-07 15:00] VITALS: BP 102/61
[2016-12-07] MEDS ORDERED: ZOLPIDEM 5 MG TABLET. PO PRN (18:15)
[2016-12-07] MEDS: POLYETHYLENE GLYCOL 3350 17 GM PACKET. PO PRN (18:32)
[2016-12-07 19:00] VITALS: BP 144/77
[2016-12-07] MEDS: ATORVASTATIN CALCIUM 10 MG TABLET. PO SCH (21:46)
[2016-12-07 23:00] VITALS: BP 128/76
[2016-12-08 03:12] VITALS: BP 134/75
[2016-12-08 07:00] VITALS: BP 145/76
[2016-12-08] MEDS: amLODIPine BESYLATE 5 MG TABLET PO SCH (09:22)
[2016-12-08] MEDS: METOPROLOL TART IMMED RELEASE 25 MG TABLET. PO SCH (09:22)
[2016-12-08] MEDS: POLYETHYLENE GLYCOL 3350 17 GM PACKET. PO PRN (09:22)
--- NOTE | 2016-12-08 09:33 | RAD ---
APPROVED REPORT Test Type: Pharmacological Stress Nurse/Tech: Patrica Villanueva R.N. Test Indications: chest pain Cardiac History: htn Medications: see emr Medical History: see emr Resting ECG: sr with inverted Ts Resting Heart Rate: 61 bpm Resting Blood Pressure: 128/67mmHg Pretest Chest Pain: No chest pain Nurse/Tech Notes lungs cta, heart tones regular Consent: The procedure was explained to the patient in lay terms. Informed consent was witnessed. Jean Claude eout was entered into [employer]. History and Stress Test performed by Patrica Villanueva R.N. Pharm. Details Pharmacologic stress testing was performed using 0.4mg per 5ml of regadenoson given intravenously ove r 7-10 seconds. Stress Symptoms No chest pain or symptoms. POST EXERCISE Reason for Termination: Infusion complete Target HR: No Max HR: 109 bpm Max Blood Pressure: 140/60mmHg Chest Pain: No. Arrhythmia: No. ST Change: No. INTERPRETATION Stress EKG Conclusion: Negative for ischemic changes. Imaging Protocol IMAGE PROTOCOL: Stress Tc-99m/rest Tc-99m 2 days Rest: Stress: Viability: Radiopharm.Tc99m Sestamibi Dose33.1mCi Duration 10min. Img Date 12/07/2016 Inj-Img [id number]. Stress Admin Site: IV - Right AntecubitalAdministrator: Kelsey Isabel, RT (R)(N) STRESS DATA End Diast. Vol.62.0mlAv. Heart Rate88.0bpm End Syst. Vol.2.0mlCO Index BSA0.0L/min Myocardial Zwkf589.0gEject. Wapytkuo30.0% Stress Rates Pk. Fill Rate4.59EDV/secLVtime Pk. Fill 170.66msec Pk. Empty Rate5.72ESV/secLVtime Pk. Yhghm455.99msec 06/04 Pk. Fill1.42EDV/sec Stress Scores Regional WT0.00Summed WT0.00 Regional WM0.00Summed WM0.00 LV Perfusion Normal perfusion at stress. Wall Motion Normal wall motion. LV Perf. Quant 17 Seg. SSS0.00 Stress Defect Extent (% LAD)0.00Rest Defect Extent (% LAD)Rev. Defect Extent (% LAD)0.00 Stress Defect Extent (% LCX) 0.00Rest Defect Extent (% LCX)Rev. Defect Extent (% LCX)0.00 Stress Defect Extent (% RCA)0.00Rest Defect Extent (% RCA)Rev. Defect Extent (% RCA)0.00 Stress Defect Extent (% GEORGETTE)0.00Rest Defect Extent (% GEORGETTE)Rev. Defect Extent (% GEORGETTE)0.00 Other Information Quality:Good Risk Assessment: Low Risk Conclusion 1. No evidence of EKG changes with vasodilator stress. 2. Normal perfusion at stress. Rest images not performed. 3. Normal EF at > 70% 4. Low risk study
[2016-12-08 11:00] VITALS: BP 120/72
--- NOTE | 2016-12-08 12:45 | CARD ---
APPROVED REPORT EXAM: LIMITED Two-dimensional echocardiogram. Other Information Quality : Average Rhythm : NSR INDICATION Chest Pain 2D DIMENSIONS RVDd3.0 (2.9-3.5cm)Left Atrium(2D)2.3 (1.6-4.0cm) IVSd0.8 (0.7-1.1cm)Aortic Root(2D)3.0 (2.0-3.7cm) LVDd4.4 (3.9-5.9cm)PWd0.8 (0.7-1.1cm) LVDs2.8 (2.5-4.0cm)FS (%) 36.4 % SV59.5 mlLVEF(%)66.3 (>50%) LEFT VENTRICLE The left ventricle is normal size. There is normal left ventricular wall thickness. Left ventricle sy stolic function is normal. The Ejection Fraction is 65-70%. There is normal LV segmental wall motion. RIGHT VENTRICLE The right ventricle is normal size. The right ventricular systolic function is normal. ATRIA The left atrium size is normal. The right atrium size is normal. GREAT VESSELS The aortic root is normal in size. PERICARDIAL EFFUSION There is no evidence of significant pericardial effusion. Critical Notification Critical Value: No <Conclusion> Left ventricle systolic function is normal. The Ejection Fraction is 65-70%. There is normal LV segmental wall motion. Limited evaluation of the valves reveals no acute pathology.
--- NOTE | 2016-12-08 23:57 | PDOC3 ---
Discharge Summary* Date of Discharge: Dec 08, 2016 Admitting Diagnosis Problems Medical Problems: (1) Chest pain Status: Acute (2) Renal insufficiency Status: Acute Problems: Final Diagnosis CHEST PAIN DUE TO POSSIBLE ANXIETY HTN Brief Hospital Course A 71-year-old -[place] female patient with prior history of hypertension hyperlipidemia presented to the ER with complaints of chest pain, 3 set of troponins negative, nucler stress not supportive of any ischemia, LVEF with in normal limits, Most likely her symptoms could be due to Anxiety, recommend to try Xanx and work with PCP exam GENERAL: No apparent distress. Alert and oriented. HEENT: Head normocephalic, atraumatic. NECK: Supple LUNGS: Clear to auscultation. HEART: RRR, S1, S2 present, pulses intact Disposition/Orders: D/C to Home CONDITION AT DISCHARGE: Stable Diet: Cardiac Scheduled Amlodipine Besylate (Amlodipine Besylate), 5 MG PO DAILY, (Reported) Atorvastatin Calcium (Atorvastatin Calcium), 10 MG PO DAILY, (Reported) Metoprolol Tartrate (Metoprolol Tartrate), 25 MG PO BID, (Reported) Discontinued Medications Sennosides/Docusate Sodium (Senna Plus Tablet), 1 EACH PO BID, (Reported) FOLLOW UP APPOINTMENT: with pcp Time Spent Total time spent with patient [35] minutes for coordination of care, counseling , and education. JOSH TELLO MD Dec 08, 2016 23:57
== END 2016-12-08 14:30 | disposition home or self-care (01) | DRG 880 ==
LOC: ER 12:08 → 5 NORTH 14:31
PROVIDERS: ADMIT Internal Medicine; ATTEND Internal Medicine
DX: F41.9 Anxiety disorder, unspecified (principal); E78.5 Hyperlipidemia, unspecified; E78.00 Pure hypercholesterolemia, unspecified; Z96.659 Presence of unspecified artificial knee joint; I10 Essential (primary) hypertension; N28.9 Disorder of kidney and ureter, unspecified; Z90.49 Acquired absence of other specified parts of digestive tract; Z90.710 Acquired absence of both cervix and uterus; Z79.899 Other long term (current) drug therapy; Z79.1 Long term (current) use of non-steroidal anti-inflammatories (NSAID)
CPT/HCPCS: 36415; 71010; 78452; 80048; 80053; 82550; 83690; 83735; 83880; 84484; 85027; 85610; 85730; 93005; 93017; 93308; 94250; 94760; 96374; 96375; 96376; A9500; C1887; J2405; J2785; J3010; 99285-25

== ENCOUNTER → 2017-06-30 | Outpatient (CLI) | payer BC | END | disposition home or self-care (01) | LOC: MAMMO 09:51 | DX: Z12.31 Encounter for screening mammogram for malignant neoplasm of breast (principal) | CPT/HCPCS: 77067 ==

== ENCOUNTER → 2018-07-06 | Outpatient (CLI) | payer BC ==
[~2018-07-06] MED LIST changes: -AMLO1CAP10 PO; +AMLO1CAP11 PO; +AMLO5TAB10 PO; -AMLO5TAB2 PO; -FERR-26 PO; +FERR325T14 PO; -HYDR-2758 PO; +HYDR-2761 PO; -SENN1TAB21 PO; +SENN1TAB62 PO
--- NOTE | 2018-07-06 16:28 | RAD ---
DATE: 07/06/2018 EXAM: MAMMO BENNY SCREENING BILATERAL HISTORY: Routine screening COMPARISON: 06/05/2015, 06/26/2016, 06/30/2017 mammographic exams This study was interpreted with the benefit of Computerized Aided Detection (CAD). Breast Density: SCATTERED The breast parenchyma shows scattered fibroglandular densities. Breast parenchyma level B. FINDINGS: There is no suspicious calcification, mass, or distortion. IMPRESSION: Benign findings. BI-RADS CATEGORY: 2 BENIGN FINDING(S) RECOMMENDED FOLLOW-UP: 12M 12 MONTH FOLLOW-UP PQRS compliance statement: Patient information was entered into a reminder system with a target due date in one year for the next mammogram. Mammography is a sensitive method for finding small breast cancers, but it does not detect them all and is not a substitute for careful clinical examination. A negative mammogram does not negate a clinically suspicious finding and should not result in delay in biopsying a clinically suspicious abnormality. "Our facility is accredited by the [employer] Mammography Program."
== END | disposition home or self-care (01) ==
LOC: MAMMO 09:43
DX: Z12.31 Encounter for screening mammogram for malignant neoplasm of breast (principal)
CPT/HCPCS: 77063; 77067

== ENCOUNTER → 2019-07-12 | Outpatient (CLI) | payer BC ==
--- NOTE | 2019-07-13 09:55 | RAD ---
DATE: July 12, 2019 EXAM: MAMMO BENNY SCREENING BILATERAL HISTORY: Screening study. COMPARISON: 2017 and 2018 This study was interpreted with the benefit of Computerized Aided Detection (CAD). 2-D digital mammographic views of both breasts were performed in the CC and MLO projections. 3-D digital tomosynthesis images of both breasts were performed in the CC and MLO projections and reviewed on a computer workstation. FINDINGS: Breast Density: HETERO The breast parenchyma is heterogenously dense, which could reduce sensitivity of mammography. Breast parenchyma level C.. There are no dominant suspicious masses, suspicious microcalcifications or evidence of architectural distortion. IMPRESSION: No mammographic indicators for malignancy. BI-RADS CATEGORY: 1 NEGATIVE RECOMMENDED FOLLOW-UP: 12M 12 MONTH FOLLOW-UP PQRS compliance statement: Patient information was entered into a reminder system with a target due date July 13, 2020 for the next mammogram. Mammography is a sensitive method for finding small breast cancers, but it does not detect them all and is not a substitute for careful clinical examination. A negative mammogram does not negate a clinically suspicious finding and should not result in delay in biopsying a clinically suspicious abnormality. "Our facility is accredited by the [employer] Mammography Program." The patient's breast density may affect the ability of mammography to detect breast cancer. There are 4 categories of breast density, A, B, C and D. Breast density A means that most of the breast tissue is replaced with adipose tissue and therefore is not dense. Breast density B means that the breast tissue is mildly dense and scattered. Breast density C means that the breast tissue is heterogeneously dense. Breast density D means that the breast tissue is very dense. Breast densities especially C and D may decrease the sensitivity of mammography to detect breast cancer. Therefore, the patient may benefit from 3-D breast mammography (3D breast tomography) as a part of their screening mammogram. Insurance may or may not pay for this additional imaging. The patient's breast density based on today's mammogram is category C.
== END | disposition home or self-care (01) ==
LOC: MAMMO 08:32
PROVIDERS: ATTEND Family Medicine
DX: Z12.31 Encounter for screening mammogram for malignant neoplasm of breast (principal); N64.89 Other specified disorders of breast
CPT/HCPCS: 77063; 77067

== ENCOUNTER → 2019-12-29 | Outpatient (CLI) | payer BC ==
[~2019-12-29] MED LIST changes: +CHOL2400 MC
--- NOTE | 2019-12-29 14:12 | EKG ---
[facility] [address] [place] [address] Test Date: 2019-12-29 Test Time: 14:11:09 Pat Name: JAY WAGONER Department: Room: Gender: F Digital Marketing Specialist: BREANNA : 1945 Requested By: LORETTA VARGAS Order Number: [id number] Reading MD: Irineo Khanna MD Measurements Intervals Benedict Rate: 76 P: 22 MO: 242 QRS: 30 QRSD: 70 T: 42 QT: 386 QTc: 439 Interpretive Statements SINUS RHYTHM PROLONGED MO INTERVAL Electronically Signed On 12-31-2019 9:04:17 CDT by Irineo Khanna MD
[2019-12-29 14:16] LABS: PROTHROMBIN TIME PATIENT 12.6 SEC (11.7-14.0)
[2019-12-29 14:32] LABS: POTASSIUM 4.8 mmol/L (3.5-5.1)
[2019-12-29 14:49] LABS: ALBUMIN 3.8 g/dL (3.4-5.0); ANION GAP 9 (6-14); BLOOD UREA NITROGEN 32 mg/dL (7-20); CALCIUM 8.8 mg/dL (8.5-10.1); CARBON DIOXIDE 26 mmol/L (21-32); CHLORIDE 105 mmol/L (98-107); CREATININE 1.9 mg/dL (0.6-1.0); GFR 31.1; GLUCOSE 98 mg/dL (70-99); SODIUM 140 mmol/L (136-145)
--- NOTE | 2019-12-29 16:12 | RAD ---
EXAM: Chest, 2 views. HISTORY: Preoperative evaluation. COMPARISON: None. FINDINGS: 2 views of the chest are obtained. There is no infiltrate, pleural effusion or pneumothorax. There is suspected left lower lobe atelectasis or scarring. The heart is normal in size. IMPRESSION: No acute pulmonary finding. Electronically signed by: Kelsey Edwards MD (12/29/2019 4:09 PM) [id number]
[2019-12-30 02:10] LABS: HEMOGLOBIN A1C 5.9 % (4.8-5.6)
== END ==
LOC: SURGPAT 12:52
PROVIDERS: ATTEND Orthopaedic Surgery
DX: Z01.818 Encounter for other preprocedural examination (principal); Z11.59 Encounter for screening for other viral diseases; T84.84XA Pain due to internal orthopedic prosthetic devices, implants and grafts, initial encounter; Y83.8 Other surgical procedures as the cause of abnormal reaction of the patient, or of later complication, without mention of misadventure at the time of the procedure; Y92.89 Other specified places as the place of occurrence of the external cause
CPT/HCPCS: 36415; 71046; 80048; 82040; 82306; 83036; 85610; 85730; 87641; 93005; U0003

== ENCOUNTER 2020-01-04 08:26 | Day surgery (SDC) | payer BC ==
--- NOTE | 2020-01-03 18:06 | PDOC1 ---
History and Physical Date of Admission Date of Admission 01/04/2020 Identification/Chief Complaint Chief Complaint Right knee pain Source Source: Chart review History of Present Illness History of Present Illness Jazmin is a 74-year-old woman here with right knee pain. History of right total knee replacement by me on 10/17/15 and patellar tendon reconstruction with autograft on 01/23/16. Currently, she states that her right knee always has pain that is "the same" since the surgery. Pt describes constant soreness with difficulty and pain standing from sitting. Anterior pain (suspected related to cerclage cable). She reports "a little" occasional pain in her left knee. Left knee is her good knee. Past Medical History Cardiovascular: HTN, Hyperlipidemia Past Surgical History Past Surgical History: Cholecystectomy, Total knee replacement Social History ALCOHOL: none Drugs: None Current Medications Current Medications Current Medications Ondansetron HCl (Zofran) 4 mg PRN Q6HRS PRN IV NAUSEA/VOMITING; Start 01/04/20 at 07:00; Stop 01/05/20 at 06:59 Fentanyl Citrate (Fentanyl 2ml Vial) 25 mcg PRN Q5MIN PRN IV MILD PAIN 1-3; Start 01/04/20 at 07:00; Stop 01/05/20 at 06:59 Fentanyl Citrate (Fentanyl 2ml Vial) 50 mcg PRN Q5MIN PRN IV MODERATE TO SEVERE PAIN; Start 01/04/20 at 07:00; Stop 01/05/20 at 06:59 Morphine Sulfate (Morphine Sulfate) 1 mg PRN Q10MIN PRN IV SEVERE PAIN 7-10; Start 01/04/20 at 07:00; Stop 01/05/20 at 06:59 Ringer's Solution 1,000 ml @ 30 mls/hr Q24H IV ; Start 01/04/20 at 07:00; Stop 01/04/20 at 18:59 Lidocaine HCl (Xylocaine-Mpf 1% 2ml Vial) 2 ml PRN 1X PRN ID PRIOR TO IV START; Start 01/04/20 at 07:00; Stop 01/05/20 at 06:59 Hydromorphone HCl (Dilaudid) 0.5 mg PRN Q10MIN PRN IV SEV PAIN, Second choice; Start 01/04/20 at 07:00; Stop 01/05/20 at 06:59 Prochlorperazine Edisylate (Compazine) 5 mg PACU PRN PRN IV NAUSEA, MRX1; Start 01/04/20 at 07:00; Stop 01/05/20 at 06:59 Morphine Sulfate 5 mg/Ketorolac Tromethamine 30 mg/Ropivacaine 60 ml/Epinephrine HCl 0.5 mg/Sodium Chloride 100 ml @ 100 mls/hr 1X ONCE INT ART ; Start 01/04/20 at 06:00; Stop 01/03/20 at 16:20; Status DC Morphine Sulfate 5 mg/Ropivacaine 60 ml/Epinephrine HCl 0.5 mg/Sodium Chloride 99 ml @ 99 mls/hr 1X ONCE INT ART ; Start 01/04/20 at 06:00; Stop 01/04/20 at 06:59 Acetaminophen (Tylenol) 1,000 mg 1X PREOP PRN PO PRIOR TO PROCEDURE; Start 01/04/20 at 06:00; Stop 01/04/20 at 18:00 Cefazolin Sodium/ Dextrose 50 ml @ 100 mls/hr 1X PREOP PRN IV PRIOR TO PROCEDURE; Start 01/04/20 at 06:00; Stop 01/04/20 at 18:00 Tranexamic Acid 1000 mg/Sodium Chloride 60 ml @ 60 mls/hr 1X PERIOP ONCE INJ ; Start 01/04/20 at 06:00; Stop 01/04/20 at 06:59 Celecoxib (CeleBREX) 400 mg PREOP 1X PRN PO PRIOR TO PROCEDURE; Start 01/03/20 at 17:30 Active Scripts Active Reported Amlodipine Besylate 5 Mg Tablet 5 Mg PO DAILY Atorvastatin Calcium 10 Mg Tablet 1 Tab PO DAILY Allergies Allergies: Coded Allergies: No Known Drug Allergies (Unverified , 01/23/16) ROS Review of System OPHTHALMOLOGY: Blurred vision none. Double vision denies. Change in vision none. ENT: Hearing loss none. Change in voice denies. Rhinorrhea none. CARDIOLOGY: Palpitations none. Shortness of breath denies. Chest pain denies. CONSTITUTIONAL: Fever denies. Chills denies. Weight gain denies. Weakness none. weight loss denies. Fatigue none. GASTROENTEROLOGY: Diarrhea denies. Vomiting none. Dysphagia none. UROLOGY: Voiding normally yes. Hematuria none. MUSCULOSKELETAL: Chronic back or neck pain denies. Swelling of the feet, hands, ankles and /or legs denies. Joint pain no. Tingling/numbness no. DERMATOLOGY: Rash denies. Lumps none. NEUROLOGY: Dizziness/lightheadedness denies. Double vision, temporary blindness denies. Tingling/numbness none. PSYCHOLOGY: Change in mood or personality denies. Memory loss none. ENDOCRINOLOGY: Obesity denies. Fatigue none. Weight loss none. HEMATOLOGY/LYMPH: Hepatitis denies. Enlarged lymph nodes denies Physical Exam General: Alert, Cooperative HEENT: Atraumatic Heart: RRR Abdomen: Soft Extremities: No tenderness/swelling (She walks with her knee slightly flexed but there is no limp otherwise . Knee The RIGHT knee shows a well-healed total knee scar, without drainage or ulcers. There is normal alignment, no masses and no effusion. No tenderness to palpation. Range of motion shows active extension of 0-120 degrees, with typical total knee crepitus but no pain at the extremes of motion. The knee is stable to varus and valgus stress without subluxation or laxity. Muscle strength is normal (5/5) for quadriceps and hamstrings, and muscle tone is normal. The extensor mechanism is intact. The skin shows a well- healed midline scar from total knee arthroplasty although there is slight discoloration and a few additional scars from patellar tendon reconstruction surgery. There are o other lesions or rashes. Light touch sensation is intact. No edema and no varicosities. Dorsalis pedis pulse is intact and capillary refill is normal) Skin: No breakdown, No significant lesion Neuro: Normal speech, Normal tone Vitals Vitals Vital Signs Date Time Temp Pulse Resp B/P (MAP) Pulse Ox O2 Delivery O2 Flow Rate FiO2 12/29/19 13:23 97.2 78 18 98 97.2 Images Images Report reviewed, images independently reviewed. The right total knee arthro plasty is in good position. The cerclage cable remains intact. There is some fragmentation at the patella but no definitive loosening. The left knee has lateral joint space narrowing and osteophytic lipping, Kellgren Ben grade 1 osteoarthritis. [facility] [address] [place], [place] [id number] IMAGING REPORT Signed PATIENT: JAZMIN WAGONER ACCOUNT: [id number] : 1945 LOCATION: [facility] AGE: 74 SEX: F EXAM STATUS: REG CLI ORD. PHYSICIAN: LORETTA VARGAS MD REASON: PROCEDURE: KNEE STANDING BILAT AP EXAM: Bilateral knees, standing view; right knee, 2 views. HISTORY: Pain. Patellar tendon repair. COMPARISON: None. FINDINGS: A frontal standing view both knees and lateral and sunrise views of the right knee are obtained. There is a right knee arthroplasty in expected position. There is a wire traversing the patella and anterior proximal tibial metaphysis due to patellar tendon surgery. There are few small bone fragments overlying the infrapatellar space. There is a suspected chronic fragmented enthesophyte along the superior patella. There is a small joint effusion. There is no acute finding involving the left knee. IMPRESSION: 1. Right knee arthroplasty in expected position and evidence of prior right patellar tendon surgery. 2. Small right knee effusion. Electronically signed by: Kelsey Edwards MD (07/05/2019 10:11 AM) [id number] DICTATED and SIGNED BY: KELSEY EDWARDS MD DATE: 07/05/19 1011 VTE Prophylaxis Ordered VTE Prophylaxis Devices: Yes VTE Pharmacological Prophylaxi: Yes Assessment/Plan Assessment/Plan I believe that some of her described symptoms are likely due to the presence of her cerclage cable. We reviewed the options for treatment and I explained that there is no active harm from the cerclage cable although it is likely causing some hardware pain. I also explained that this is not time sensitive and she may have it removed whenever she feels ready, or not at all. We discussed the possibility of cerclage cable hardware removal surgery and associated risks of extensor mechanism disruption (which seems unlikely this for out from surgery--the tissues are likely bearing most or all of the stress, and the cerclage cable is likely extraneous now.) infection, bleeding, blood clots, or other potential surgical or anesthetic complications. We also discussed postoperative treatment and expectations. She is here today for elective r emoval of the cerclage cable hardware of the right knee. Justicifation of Admission Dx: Justifications for Admission: Justification of Admission Dx: N/A LORETTA VARGAS MD Jan 03, 2020 18:06
[~2020-01-04] VITALS: Ht 154.9 cm; Wt 71.2 kg
[~2020-01-04 08:26] MED LIST changes: +ACETAMINOPHEN 500 MG TABLET PO PRN; +CELECOXIB 100 MG CAPSULE. PO PRN; -CHOL2400 MC; +HYDROmorphone 2 MG/ML VIAL IV PRN; +IV RINGERS,LACTATED 1000ML 1,000 ML IV SCH; +LIDOCAINE 1% PF 2 ML VIAL. ID PRN; +LIDOCAINE 2% PF 5 ML VIAL. ONE; +MORPHINE SULFATE 2 MG/ML VIAL. IV PRN; +MORPHINE SULFATE 5 MG, KETOROLAC 30MG VIAL 30 MG, ROPIVacaine 0.5% PF 60 ML, EPINEPHrin... INT ART ONE; +ONDANSETRON PF 4 MG/2 ML VIAL. IV PRN; +PROCHLORPERAZINE 10 MG/2 ML VIAL. IV PRN; +PROPOFOL 10 MG/ML (20ML) VIAL. IV ONE; +TRANEXAMIC ACID 1,000 MG in IV NS 50ML -- 1ST BAG INJ ONE; +ceFAZolin 2GM PREMIX 2 GM/50 ML BAG IV ONE; +fentaNYL PF VIAL 100 MCG/2 ML VIAL IV PRN; +fentaNYL PF VIAL 100 MCG/2 ML VIAL ONE
[2020-01-04] MEDS ORDERED: CHOL2400 MC (09:16)
[2020-01-04] MEDS ORDERED: CELE200C PO (09:35)
[2020-01-04] MEDS ORDERED: ONDANSETRON PF 4 MG/2 ML VIAL. ONE (10:34)
[2020-01-04] MEDS ORDERED: DEXAMETHASONE SOD PHOS 4 MG/ML VIAL ONE (10:34)
--- NOTE | 2020-01-04 11:55 | PDOC4 ---
Operative Note Operative Note Date of Procedure: January 04, 2020 Pre-Op Diagnosis: Right knee, painful orthopaedic hardware - T84.84XA Post-Op Diagnosis: Right knee, painful orthopaedic hardware - T84.84XA Procedure: Hardware removal, deeply buried wire, right knee CPT 93302 Surgeon: Loretta Dykes MD Anesthesia: General EBL: 50 mL Specimens Obtained: none Complications: none Drains: none Tourniquet: 14 minutes at 300 mmHg Findings: Deeply buried wire/cable was removed without difficulty. The patellar implant was palpated and is stable to palpation without evidence of loosening. Indications for Procedure: This patient is a 74-year-old with remote total knee arthroplasty, and subsequent patellar tendon rupture. This was treated with patellar tendon repair/reconstruction, and cerclage cable. She has had increasing pain at the cable, and it is felt no longer needed because the patellar tendon repair was years ago. I spoke to her about the risks and benefits of removal of the cable. There is some evidence on x-ray that the cable may be causing some problem with the patellar component and I recommended at least intraoperative confirmation of the patellar component was stable, and possible additional procedures such as removal of the loose patellar polyethylene if needed. She stated understanding of the risks benefits and alternatives and all of her questions about surgery were answered. We discussed the potential risks of ongoing pain, infection, stiffness, rerupture of the patellar tendon, bleeding, blood clots, or other potential surgical or anesthetic complications. A written consent was obtained. Procedure in Detail: The patient was identified in the preoperative holding area. The correct right lower extremity was marked by me. The patient was taken to the operating room where general anesthetic was used. The patient was positioned supine on the operating table. A tourniquet was applied to the upper portion of the limb. Preoperative antibiotics were given intravenously. A timeout procedure was performed. The operating team wore the personal exhaust [employer] personal ventilated hoods due to the underlying total knee arthroplasty. The limb was prepared in sterile fashion. Sterile drapes were applied with an impervious stockinette and an Ioban drape such that the skin was entirely covered. An Esmarch bandage was used to exsanguinate the limb and the tourniquet was inflated. A 5 cm incision was used over the superior pole of the patella. Sharp dissection was used. Bovie electrocautery was used for hemostasis. A small medial arthrotomy was performed, and the cable was identified. The cable was able to be cut at this location. A second incision was made around the tibial tubercle, and the clamp from the cable system was identified. This was removed without difficulty using a Tray, and the entire cable was able to be removed. Finally I palpated the patellar component from the medial arthrotomy, and confirmed that the patellar polyethylene component feels stable, and that there is no evidence of infection or other problem at the joint. The tourniquet was released. Copious irrigation was used with the [employer] Inter[employer]ulse kelly machine operator. The arthrotomy was closed with #1 Vicryl [id number] sutures. 2-0 Vicryl subcutaneous sutures were placed in the subcutaneous layer. The skin was approximated with 3-0 Prolene horizontal mattress sutures. A periarticular injection was used with ropivacaine, morphine, and epinephrine. Xeroform and sterile dressings were applied. Needle and sponge counts were correct. There were no apparent complications. LORETTA DYKES MD Jan 04, 2020 11:55
[2020-01-04 12:30] VITALS: BP 160/55
[2020-01-04] MEDS ORDERED: oxyCODONE/APAP 5/325 1 TAB TABLET PO PRN (12:45)
== END 2020-01-04 13:25 | disposition home or self-care (01) ==
LOC: SURG 08:26
PROVIDERS: ATTEND Orthopaedic Surgery
DX: T84.84XA Pain due to internal orthopedic prosthetic devices, implants and grafts, initial encounter (principal); I10 Essential (primary) hypertension; E78.5 Hyperlipidemia, unspecified; Z90.49 Acquired absence of other specified parts of digestive tract; Z98.890 Other specified postprocedural states; Z79.899 Other long term (current) drug therapy; Z96.651 Presence of right artificial knee joint; Y83.8 Other surgical procedures as the cause of abnormal reaction of the patient, or of later complication, without mention of misadventure at the time of the procedure; Y92.89 Other specified places as the place of occurrence of the external cause
CPT/HCPCS: 20680; 36415; 86140; 86850; 86900; 86901; A7015; C1713; J0171; J0690; J1100; J1885; J2270; J2405; J2704; J2795; J3010; J3490; J7030; A4461; C1769

== ENCOUNTER → 2020-08-01 | Outpatient (CLI) | payer BC ==
[~2020-08-01] MED LIST changes: -ACETAMINOPHEN 500 MG TABLET PO PRN; +AMLO-186 PO; -AMLO5TAB10 PO; -CELECOXIB 100 MG CAPSULE. PO PRN; +CHOL2400 MC; -HYDROmorphone 2 MG/ML VIAL IV PRN; -IV RINGERS,LACTATED 1000ML 1,000 ML IV SCH; -LIDOCAINE 1% PF 2 ML VIAL. ID PRN; -LIDOCAINE 2% PF 5 ML VIAL. ONE; -MORPHINE SULFATE 2 MG/ML VIAL. IV PRN; -MORPHINE SULFATE 5 MG, KETOROLAC 30MG VIAL 30 MG, ROPIVacaine 0.5% PF 60 ML, EPINEPHrin... INT ART ONE; -ONDANSETRON PF 4 MG/2 ML VIAL. IV PRN; -PROCHLORPERAZINE 10 MG/2 ML VIAL. IV PRN; -PROPOFOL 10 MG/ML (20ML) VIAL. IV ONE; -TRANEXAMIC ACID 1,000 MG in IV NS 50ML -- 1ST BAG INJ ONE; -ceFAZolin 2GM PREMIX 2 GM/50 ML BAG IV ONE; -fentaNYL PF VIAL 100 MCG/2 ML VIAL IV PRN; -fentaNYL PF VIAL 100 MCG/2 ML VIAL ONE
--- NOTE | 2020-08-01 13:05 | RAD ---
DATE: 08/01/2020 10:36 AM EXAM: MAMMO BENNY SCREENING BILATERAL HISTORY: Screening COMPARISON: 07/12/2019 Bilateral CC and MLO views of the breasts were performed. Bilateral breast tomosynthesis was performed in CC and MLO projections. This study was interpreted with the benefit of Computerized Aided Detection (CAD). FINDINGS: Breast Density: HETERO The breast parenchyma Is heterogeneously dense, which could reduce sensitivity of mammography. Breast parenchyma level C No suspicious masses, microcalcifications or architectural distortion is present to suggest malignancy in either breast. The visualized axillae are unremarkable. IMPRESSION: No mammographic evidence of malignancy. BI-RADS CATEGORY: 1 NEGATIVE RECOMMENDED FOLLOW-UP: 12M 12 MONTH FOLLOW-UP Annual screening mammography is recommended, unless clinically indicated sooner based on symptoms or change in physical exam. PQRS compliance statement: Patient information was entered into a reminder system with a target due date for the next mammogram. Mammography is a sensitive method for finding small breast cancers, but it does not detect them all and is not a substitute for careful clinical examination. A negative mammogram does not negate a clinically suspicious finding and should not result in delay in biopsying a clinically suspicious abnormality. "Our facility is accredited by the [employer] Mammography Program."
== END ==
LOC: MAMMO 09:38
PROVIDERS: ATTEND Family Medicine
DX: Z12.31 Encounter for screening mammogram for malignant neoplasm of breast (principal)
CPT/HCPCS: 77063; 77067

== ENCOUNTER → 2021-09-04 | Outpatient (CLI) | payer BC, MEDICARE ==
--- NOTE | 2021-09-04 16:11 | RAD ---
Bilateral digital screening 2-D and 3-D (digital breast tomosynthesis) mammogram: Reason for examination: Routine screening. Comparison: Mammograms from 08/01/2020, the 07/12/2017, and 07/06/2018. Interpretation was made with the benefit of CAD. FINDINGS: Breast density: Category B. There are scattered areas of fibroglandular density. No suspicious breast mass, malignant appearing calcifications, or architectural distortion is seen. IMPRESSION: No evidence of malignancy. Assessment: BI-RADS 1. Negative. Recommendation: Routine screening mammograms. The patient will receive a letter with the results in the mail. Patient information will be entered i nto the mammography reminder system with a target recall date for the next mammogram. A reminder aide er will be generated. Electronically signed by: Alexus Peterson MD (09/04/2021 4:09 PM) [id number]
== END ==
LOC: MAMMO 09:03
PROVIDERS: ATTEND Family Medicine
DX: Z12.31 Encounter for screening mammogram for malignant neoplasm of breast (principal)
CPT/HCPCS: 77063; 77067